=== PATIENT | male | born 1960 | race Caucasian/White ===

== ENCOUNTER 2018-08-10 12:55 | Emergency (ER) | payer OTHER ==
[2018-08-10] MEDS: LIDOCAINE 1% (MPF) 5 ML VIAL INJ (15:26)
[2018-08-10] MEDS: ACYCLOVIR 800 MG TAB PO (15:26)
[2018-08-10] MEDS: predniSONE 20 MG TAB PO (15:26)
[2018-08-10] MEDS: CEFTRIAXONE 1 GM INJ IM (15:27)
== END 2018-08-10 15:59 | disposition home or self-care (01) ==
LOC: FTE 12:55
DX: R21 Rash and other nonspecific skin eruption (principal)
CPT/HCPCS: 96372; 99284-25